=== PATIENT | female | born 1950 | race Caucasian/White ===

== ENCOUNTER → 2016-09-17 | Outpatient (CLI) | payer OTHER ==
--- NOTE | 2016-09-18 12:52 | MG ---
HISTORY: SCREENING Comparison: 09/12/2015 FINDINGS: Bilateral CC and MLO projections of the right and left breast were obtained. Scattered fibroglandul ar tissue is seen to be present. No significant architectural distortion, mass or clustered microca lcifications can be observed to suggest malignancy. No skin thickening or nipple retraction is appr eciated. No pathological lymphadenopathy can be identified. Stable benign calcifications are seen in both breasts. IMPRESSION: NO RADIOGRAPHIC EVIDENCE OF MALIGNANCY. ACR CATEGORY I - NEGATIVE EXAM. FOLLOW-UP EXAM 1 YEAR. Diagnostic CAD was utilized and reviewed. * 0 (ZERO) - ASSESSMENT INCOMPLETE; ADDITIONAL IMAGING IS NEEDED. * / (ONE) - NEGATIVE. * 2/II (TWO) - BENIGN FINDINGS. * 3/III (THREE) - PROBABLY BENIGN FINDING; SHORT INTERVAL FOLLOW-UP SUGGESTED. * 4/IV (FOUR) - SUSPICIOUS ABNORMALITY; BIOPSY SHOULD BE CONSIDERED. * 5/V - HIGHLY SUSPICIOUS OF MALIGNANCY; BIOPSY SHOULD BE PERFORMED. A NEGATIVE X-RAY REPORT SHOULD NOT DELAY BIOPSY IF A DOMINANT OR CLINICALLY SUSPICIOUS MASS IS PRESENT; 4 TO 8 PERCENT OF CANCERS ARE NOT IDENTIFIED BY X-RAY. A NEG ATIVE REPORT MAY REINFORCE THE CLINICAL IMPRESSION. ADENOSIS AND DENSE BREASTS MAY OBSCURE AN UNDER LYING NEOPLASM. Reported By:
== END ==
LOC: RAD 15:29
PROVIDERS: ATTEND Specialist
DX: Z12.31 Encounter for screening mammogram for malignant neoplasm of breast (principal)
CPT/HCPCS: 77067

== ENCOUNTER → 2017-08-17 | Outpatient (CLI) | payer OTHER ==
--- NOTE | 2017-08-17 09:30 | VAS ---
HISTORY: Subacute history of fall with left lower leg pain, swelling, hematoma, history of DVT Study: Left lower extremity venous Doppler Comparison: April 19, 2013 TECHNIQUE: Multiple bangeas scale as well as spectral and color flow Doppler images of the deep venous system were obtained of the left lower extremity. FINDINGS: The deep venous system of the left lower extremity was evaluated from the level of the common femoral vein through the popliteal vein. Normal color flow and augmentation can be observed. In addition, normal compression is seen throughout the deep venous system. Within the region of interest, there is a 4 cm complex fluid collection without internal vascularity and with posterior acoustical enhanceme nt most consistent with a liquefying hematoma given the clinical history. IMPRESSION: Negative for DVT. 4 cm hematoma in the region of interest. Reported By:
== END | disposition home or self-care (01) ==
LOC: RAD 08:39
PROVIDERS: ATTEND Obstetrics & Gynecology
DX: S70.12XA Contusion of left thigh, initial encounter (principal); W19.XXXA Unspecified fall, initial encounter
CPT/HCPCS: 93971

== ENCOUNTER 2020-06-19 14:38 | Observation (INO) ==
[2020-06-19 17:04] VITALS: BMI 25.9
[2020-06-19] MEDS ORDERED: ZOFRAN INJ 4 MG VIAL IVP PRN (17:49)
[2020-06-19] MEDS ORDERED: ATARAX TAB 25 MG PO PRN (17:50)
[2020-06-19] MEDS ORDERED: ZESTRIL TAB 10 MG PO SCH (18:00)
[2020-06-19] MEDS ORDERED: ZESTRIL TAB 10 MG ONE (18:01)
[2020-06-19] MEDS ORDERED: PLAVIX ONE (18:01)
--- NOTE | 2020-06-19 18:17 | DR.H&P ---
H&P - History & Physical for Day of: H&P Date: 06/19/20 - Chief Complaint Chief Complaint: NEW ONSET LEFT SIDE WEAKNESS, CHEST PAIN, VISION CHANGES - History of Present Illness History of Present Illness: PT IS 70 WF DIRECT ADMIT FROM DR MARTINEZ OFFICE WITH CO NEW ONSET LEFT SIDE WEAKNESS WITH IMPAIRED SPEECH. PT REPORTS SHE HAS NOTICED OVER A WEEK AT LEAST FOLLOWING COVID 19 VIRUS. PT CO EXERTIONAL SOB AND CHEST AND UPPER BACK PAIN. PT REPORTS BP HAS BEEN ELEVATED. PT HAD CT HEAD REVEALING CVA. 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 PT REPORTS NEW EPISODE OF ACUTE VISION DISTURBANCE TODAY COURT ABSTRACTOR, WITH CP AND PAIN TO BACK AND LEGS. - Past Medical History Past Medical History: Hypertension - Past Surgical History Surgical History: Cholecystectomy - Family History Family Medical History: Diabetes Mellitus, Cancer, Coronary Artery Disease, Hypertension - Social History Does patient currently use any type of tobacco product: No Have you used tobacco products in the last 12 months: No Type of Tobacco Use: None Alcohol Use: None Drug Use: None - Medications Home Medications: No Known Drug Allergies Allergy (Unverified 06/19/20 16:22) - Review of Systems Constitutional: Weakness Eyes: Vision Change Respiratory: Shortness of Breath, SOB with Excertion Cardiovascular: Chest Pain, Palpitations Gastrointestinal: Nausea Genitourinary: No Symptoms Reported Musculoskeletal: Back Pain Skin: No Symptoms Reported Neurological: Weakness, Incoordination (REPORTS HAND WRITING "NOT RIGHT"), Change in Speech - Physical Exam Vital Signs: Temperature 98.4 F Pulse Rate [Left Radial] 73 Respiratory Rate 20 Blood Pressure [Right Arm] 129/60 O2 Sat by Pulse Oximetry 99 Oriented: Normal Eyes: Blurred Vision Ear: Normal Nose: Normal Throat: Normal Respiratory: RLL Diminished, LLL Diminished Cardiovascular: Normal, Edema (TRACE BILATERAL LOWER) Auscultation: Bowel Sounds: Normal Palpation: Normal Tenderness: Normal Skin: Decreased Turgur Musculoskeletal: Normal Psychiatric: Anxiety Affect: Anxious Speech Pattern: Appropriate, Delayed (MILDLY) - Assessment/Plan (1) TIA (transient ischemic attack) Status: Acute Plan: ADMIT, SERIAL CE AND EKG. MRI BRAIN, CTA CAROTID. CTA CHEST R/O PE. ASPIRIN PLAVIX. CONTINUOUS CARDIAC MONITORING, IV HYDRATION STRICT I & OS (2) Hypertension Status: Acute (3) Hyperlipemia, mixed Status: Acute (4) Vision blurred Status: Acute (5) Chest pain Status: Acute - Allergies Allergies/Adverse Reactions: Allergies Allergy/AdvReac Type Severity Reaction Status Date / Time No Known Drug Allergies Allergy Unverified 06/19/20 16:22
[2020-06-19] MEDS: PLAVIX PO SCH (18:20)
[2020-06-19 18:24] LABS: BASOPHILS % (AUTO) 0.9 % (0.2-1.0); EOSINOPHILS % (AUTO) 0.7 % (0.9-2.9); HEMATOCRIT 35.2 % (36.0-47.0); LYMPHOCYTES % (AUTO) 42.7 % (21.0-51.0); MEAN CORPUSCULAR HEMOGLOBIN 30.7 pg (27.0-34.0); MEAN CORPUSCULAR HGB CONC 34.2 g/dL (33.0-35.0); MEAN CORPUSCULAR VOLUME 89.7 fL (80.0-100.0); MEAN PLATELET VOLUME 8.3 fL (7.4-11.0); MONOCYTES # (AUTO) 0.5 x10^3/uL (0.3-0.8); MONOCYTES % (AUTO) 11.1 % (0.0-13.0); NEUTROPHILS # (AUTO) 2.1 x10^3/uL (2.2-4.8); NEUTROPHILS % (AUTO) 44.6 % (42.0-75.0); PLATELET COUNT 202 X10^3/uL (150.0-450.0); RED BLOOD COUNT 3.92 X10^6/uL (3.5-5.4); RED CELL DISTRIBUTION WIDTH 13.7 % (11.6-16.5); WHITE BLOOD COUNT 4.7 X10^3/uL (3.6-10.0)
[2020-06-19] MEDS: NS 1000 ML 1,000 ML IV SCH (18:37)
[2020-06-19 18:40] LABS: BLOOD UREA NITROGEN 10 mg/dL (7-18); CALCIUM 9.1 mg/dL (8.5-10.1); CARBON DIOXIDE 25.7 mmol/L (21-32); CHLORIDE 106 mmol/L (98-107); CREATININE 0.77 mg/dL (0.55-1.02); SODIUM 141 mmol/L (136-145); TROPONIN I < 0.02 ng/mL (0-1.5); eGFR NON BLACK RACES > 60 (>60)
[2020-06-19 18:55] LABS: ALANINE AMINOTRANSFERASE 22 Units/L (12-78); ALBUMIN 3.6 g/dL (3.4-5.0); ALKALINE PHOSPHATASE 81 Units/L (46-116); ASPARTATE AMINO TRANSFERASE 14 Units/L (15-37); CKMB % 2.8 % (<4); CREATINE KINASE 36 Units/L (26-192); CREATINE KINASE MB < 1.0 ng/mL (0-4.0); MAGNESIUM 1.9 mg/dL (1.7-2.9); TOTAL PROTEIN 6.6 g/dL (6.4-8.2)
[2020-06-19] MEDS ORDERED: NS 100 ML IV 100 ML IV ONE (19:34)
--- NOTE | 2020-06-19 20:14 | CT ---
EXAM: CTA CHEST WITH INTRAVENOUS CONTRASTHISTORY: History of Covid positive test in April. Weakness in the left side.TECHNIQUE: Spiral axial CT images are obtained through the chest with the administration of intravenous contrast. Coronal, sagittal and 3D MIP images are reformatted.DOSIMETRY: Total DLP 408.5 mGycm; CTDI 30.8 mGyCOMPARISON: None available.FINDINGS:CARDIOVASCULAR: There is no evidence for pulmonary embolic disease. The heart size and mediastinal vascular structures are within normal limits. There is no significant aortic or coronary atherosclerosis seen. No thoracic aortic aneurysm or dissection is noted.MEDIASTINUM AND CARYN: No mass lesion, lymphadenopathy, emphysema, or abnormal fluid collection is seen.LUNGS: There is no acute parenchymal infiltrate, lung nodule, or endobronchial obstructing lesion seen. No pleural effusion or pneumothorax is evident.CHEST WALL: There are no chest wall lesions seen. The visualized bony structures are within normal limits. No axillary lymphadenopathy is noted.UPPER ABDOMEN: Limited views through the upper abdomen demonstrate no gross acute abnormality.IMPRESSION:1. No evidence for pulmonary embolic disease.2. No evidence for aortic aneurysm or aortic dissection.3. No acute parenchymal infiltrate, pleural effusion, or pneumothorax seen.4. No gross endobronchial obstructing lesion is seen.Electronically signed by: Marcy Wells (Jun 19, 2020 20:11:40)
[2020-06-19 22:13] LABS: BILIRUBIN,URINE NEGATIVE (NEGATIVE); BLOOD/HEMOGLOBIN,URINE NEGATIVE (NEGATIVE); GLUCOSE, URINE NEGATIVE (NEGATIVE); KETONES,URINE NEGATIVE (NEGATIVE); LEUKOCYTE ESTERASE ,URINE NEGATIVE (NEGATIVE); NITRITES,URINE NEGATIVE (NEGATIVE); PROTEIN,URINE NEGATIVE (NEGATIVE); UROBILINOGEN,URINE NORMAL (NORMAL)
[2020-06-19 22:40] LABS: APPEARANCE,URINE CLEAR (CLEAR); COLOR,URINE STRAW (YELLOW)
[2020-06-20 00:30] LABS: CREATINE KINASE 33 Units/L (26-192); CREATINE KINASE MB < 1.0 ng/mL (0-4.0); TROPONIN I < 0.02 ng/mL (0-1.5)
[2020-06-20 05:07] LABS: CHOL/HDL RATIO 2.8 (0.0-5.0); CHOLESTEROL 200 mg/dL (0-200); CKMB % 3.7 % (<4); CREATINE KINASE 27 Units/L (26-192); CREATINE KINASE MB < 1.0 ng/mL (0-4.0); HDL CHOLESTEROL 72 mg/dL (40-60); TRIGLYCERIDES 74 mg/dL (0-150); TROPONIN I < 0.02 ng/mL (0-1.5)
[2020-06-20] MEDS ORDERED: ZESTRIL TAB 10 MG PO SCH (09:00)
[2020-06-20] MEDS ORDERED: PROTONIX INJ 40 MG VIAL IVP SCH (09:00)
[2020-06-20] MEDS: PLAVIX PO SCH (10:35)
--- NOTE | 2020-06-20 10:50 | MRI ---
HISTORYRECENT CVA, NEW TIA SYMPTOMSSTUDYMR brain without IV contrastCOMPARISONCT 06/19/2020TECHNIQUEMultiplanar multi-sequence MRI of the brain was obtained without administration of IV contrast.FINDINGSThe cerebellar tonsils are normally positioned. Pituitary gland is normal in size. [Moderate diffuse volume loss is seen in the brain with compensatory enlargement of the ventricular system.]No areas of restricted diffusion. Moderate foci of increased T2 signal are seen in the supratentorial white matter, primarily in a subcortical distribution. Findings are probably due to chronic small vessel ischemic changes. No evidence of mesial temporal sclerosis. [No evidence of intracranial hemorrhage.]Paranasal sinuses and mastoid air cells appear clear.IMPRESSIONLikely moderate chronic small vessel ischemic changes in the supratentorial white matter. No evidence of recent CVA.Electronically signed by: Clayton Padilla (Jun 20, 2020 10:48:24)
--- NOTE | 2020-06-20 11:21 | MRI ---
HISTORY:CVA, TIAStudy: MRA neck without contrastComparison:MRI brain same dayTechnique: [id number] imaging of the carotid and vertebral arteries was performed without contrast and supplemented with 3D reconstructed images.Findings:[id number] images demonstrate antegrade flow within the carotid and vertebral arteries bilaterally. There is no significant stenosis identified at the carotid bifurcations or in the proximal internal carotid arteries. There is no evidence of vessel occlusion. The vertebrobasilar system appears patent. The visualized aortic arch is unremarkable.IMPRESSION:Negative MRA neck.Electronically signed by: ERIK GERARD (Jun 20, 2020 11:19:40)
[2020-06-20 13:20] VITALS: BP 124/56
[2020-06-20] MEDS: NS 1000 ML 1,000 ML IV SCH (13:41)
== END 2020-06-20 16:11 | disposition home or self-care (01) ==
LOC: OBS
PROVIDERS: ADMIT Internal Medicine; ATTEND Internal Medicine
DX: R07.89 Other chest pain; R94.31 Abnormal electrocardiogram [ECG] [EKG]; G81.94 Hemiplegia, unspecified affecting left nondominant side; R60.0 Localized edema; I10 Essential (primary) hypertension; R53.1 Weakness; E78.2 Mixed hyperlipidemia; R26.89 Other abnormalities of gait and mobility; M54.89 Other dorsalgia; G45.9 Transient cerebral ischemic attack, unspecified; Z86.16 Personal history of COVID-19; Z79.01 Long term (current) use of anticoagulants; H53.9 Unspecified visual disturbance; R06.02 Shortness of breath